=== PATIENT | male | born 1995 | race Caucasian/White ===

== ENCOUNTER 2022-02-10 20:29 | Emergency (ER) | payer MEDICAID ==
[~2022-02-10] VITALS: Ht 167.6 cm; Wt 99.8 kg
--- NOTE | 2022-02-10 20:30 | NUR ---
Pt rought by self, c/o sore throat ,chills and congestion, afebrile at this time , skin pink and warm, cap refill <3.
--- NOTE | 2022-02-10 20:30 | NUR ---
Pt brought by self, c/o sore throat ,chills and congestion, afebrile at this time , skin pink and warm, cap refill <3.
--- NOTE | 2022-02-10 20:35 | NUR ---
Dorothy tavares in [facility] - 02/10/22 at [email or web address] Rudolph evaluating patient at bedside
[2022-02-10 20:42] VITALS: BP_SYST 146
[2022-02-10] MEDS ORDERED: NAPR-1172 PO (20:52)
--- NOTE | 2022-02-10 21:00 | NUR ---
Patient given written and verbal discharge instructions and verbalizes understanding. ER MD discussed with patient the results and treatment provided. Patient in stable condition. ID arm band removed. Rx of Naproxen given. Patient educated on pain management and to follow up with PMD. Pain Scale 4/10. Opportunity for questions provided and answered. Medication side effect fact sheet provided.
[2022-02-10 21:03] VITALS: BP_SYST 146
== END 2022-02-10 21:00 | disposition home or self-care (01) ==
LOC: SED 20:29
DX: J06.9 Acute upper respiratory infection, unspecified (principal); Z79.899 Other long term (current) drug therapy
CPT/HCPCS: 99282

== ENCOUNTER 2022-08-09 18:38 | Emergency (ER) | payer MEDICAID ==
[~2022-08-09] VITALS: Ht 170.2 cm; Wt 99.8 kg
[~2022-08-09 18:38] MED LIST: NAPR-1172 PO
[2022-08-09 19:17] VITALS: BP_SYST 144
--- NOTE | 2022-08-09 19:21 | NUR ---
PT HERE C/O LT SIDED HEADACHE RADIATE TO NECK AND LT ARM X3 DAYS. PT DENIES DIZZINESS AND BLURRY VISION. DENIES TRAUMA. NO LN NOTED. PMH:HYPERLIPIDEMIA PT AAOX4, NO SOB NOTED AND NAD. PENDING MD MCCULLOUGH
[2022-08-09] MEDS ORDERED: LIDOCAINE PATCH 5% 1 EA TP ONE (21:15)
[2022-08-09] MEDS ORDERED: IBUPROFEN 600 MG TABLET PO ONE (21:15)
--- NOTE | 2022-08-09 21:15 | NUR ---
PT SEEN AND EXAMINE BY DR. MORILLO
[2022-08-09] MEDS ORDERED: IBUP-1969 PO (21:50)
[2022-08-09 23:02] VITALS: BP_SYST 133
--- NOTE | 2022-08-09 23:03 | NUR ---
DC PT HOME AAOX4, NO SOB NOTED AND NAD. DC INSTRUCTION AND PRESCRIPTION WERE GIVEN TO PT ALSO INSTRUCTED TO F/U WITH HIS PCP. HE VERBALIZED UNDERSTANDING
== END 2022-08-09 23:00 | disposition home or self-care (01) ==
LOC: SED 18:38
DX: R51.9 Headache, unspecified (principal); M25.512 Pain in left shoulder; M54.6 Pain in thoracic spine; Z79.899 Other long term (current) drug therapy
CPT/HCPCS: 73030; 99283

== ENCOUNTER 2022-12-15 19:35 | Emergency (ER) | payer MEDICAID ==
[~2022-12-15] VITALS: Ht 167.6 cm; Wt 97.5 kg
[~2022-12-15 19:35] MED LIST changes: +IBUP-1969 PO
[2022-12-15 20:15] VITALS: BP_SYST 144
--- NOTE | 2022-12-15 20:20 | NUR ---
Dr. Odonnell at bedside.
--- NOTE | 2022-12-15 20:20 | NUR ---
Pt placed to ER bed 03. Report given to ARACELIS Callejas.
[2022-12-15] MEDS ORDERED: MAG-AL HYDROX/SIMETH 30 ML UDC PO ONE (20:30)
[2022-12-15] MEDS ORDERED: FAMOTIDINE 20 MG TABLET PO ONE (20:30)
[2022-12-15] MEDS ORDERED: ACETAMINOPHEN 500 MG TABLET PO ONE (20:30)
--- NOTE | 2022-12-15 22:13 | NUR ---
Dorothy tavares in [facility] - 12/15/22 at 2213 by [email or web address] pt esting in bed
[2022-12-15] MEDS ORDERED: FAMO-132 PO (22:51)
[2022-12-15 22:58] VITALS: BP_SYST 136
--- NOTE | 2022-12-15 23:00 | NUR ---
Patient given written and verbal discharge instructions and verbalizes understanding. ER MD MARSHALL discussed with patient the results and treatment provided. Patient in stable condition. ID arm band removed. Rx of PEPCID given. Patient educated on pain management and to follow up with PMD. Pain Scale . Opportunity for questions provided and answered. Medication side effect fact sheet provided.
== END 2022-12-15 22:58 | disposition home or self-care (01) ==
LOC: SED 19:35
DX: K21.9 Gastro-esophageal reflux disease without esophagitis (principal); R19.06 Epigastric swelling, mass or lump; Z79.899 Other long term (current) drug therapy
CPT/HCPCS: 71045; 99283